=== PATIENT | female | born 1985 | race Caucasian/White ===

== ENCOUNTER 2024-12-05 10:50 | Outpatient (CLI) | payer BC, OTHER, SELFPAY | END 2024-12-05 10:51 | disposition home or self-care (01) | LOC: NFLDREF 12-06 09:50 | PROVIDERS: PCP Family Medicine; Visit Provider Family Medicine | DX: N39.0 Urinary tract infection, site not specified (principal); B95.1 Streptococcus, group B, as the cause of diseases classified elsewhere | CPT/HCPCS: 87086; 87186 ==